=== PATIENT | male | born 1965 | race Caucasian/White ===

== ENCOUNTER 2018-08-21 10:11 | Inpatient (IN) | payer MEDICAID ==
[~2018-08-21 10:11] MED LIST: ETOMIDATE 20 MG INJ; ROCURONIUM 50 MG INJ
[2018-08-21] MEDS: CEFEPIME 2GM/50 ML (PMX) 50 ML IVPB (10:35)
[2018-08-21 10:37] LABS: ADD MAN DIFF? NO
[2018-08-21 10:39] LABS: WHITE BLOOD COUNT 9.8 10^3/ul (4.8-10.8)
[2018-08-21 10:39] LABS: ABNORMAL IP MESSAGE 1; BASOPHILS % 0.3 % (0.0-2.0); HEMATOCRIT 42.5 % (42.0-52.0); HEMOGLOBIN 13.9 g/dl (14.0-18.0); LYMPHOCYTES # 1.1 10^3/ul (0.8-2.9); LYMPHOCYTES % 10.7 % (15.0-51.0); MEAN CORPUSCULAR HEMOGLOBIN 31.6 pg (29.0-33.0); MEAN CORPUSCULAR HGB CONC 32.7 g/dl (32.0-37.0); MEAN CORPUSCULAR VOLUME 96.6 fl (82.0-101.0); MEAN PLATELET VOLUME 10.7 fl (7.4-10.4); MONOCYTE # 0.5 10^3/ul (0.3-0.9); MONOCYTES % 5.1 % (0.0-11.0); NEUTROPHIL # 8.2 10^3/ul (1.6-7.5); NEUTROPHILS % 83.2 % (39.0-77.0); PLATELET COUNT 189 10^3/UL (140-415); POSITIVE DIFF @See below; RED CELL DISTRIBUTION WIDTH 14.9 % (11.5-14.5)
[2018-08-21 10:59] LABS: AADO2 Arterial 312.2 mmHg (7.0-24.0); Allen Test ACCEPTAB; Arterial Base Excess 0.9 mmol/L (-3.0-3); Arterial Blood Gas Oxygen Sat 99.3 mmHG (95.0-98.0); Arterial COHb 0.4 % (0.0-3.0); Arterial Fraction of Oxyhgb 98.5 % (93.0-99.0); Arterial HCO3 24.5 mmol/L (22.0-26.0); Arterial MetHb 0.4 % (0.0-1.5); Arterial Total Hemglobin 14.1 g/dl (12.0-18.0); Arterial pCO2 36.2 mmhg (35-45); Blood Gas IEPAP 18/6; Blood Gas PS 12; MODE MASK - BIPAP; Site Right Radial
[2018-08-21 11:02] LABS: ANION GAP 8 (5-13); BLOOD UREA NITROGEN 28 mg/dl (7-20); CALCIUM 8.1 mg/dl (8.4-10.2); CARBON DIOXIDE 27 mmol/L (21-31); CHLORIDE 107 mmol/L (97-110); CREATININE 1.34 mg/dl (0.61-1.24); Estimated GFR 56 mL/min (>60); GLUCOSE 153 mg/dl (70-220); POTASSIUM 4.4 mmol/L (3.5-5.1); SODIUM 142 mmol/L (135-144)
[2018-08-21 11:06] LABS: ACETAMINOPHEN < 10.0 ug/ml (10.0-30.0); ETHANOL < 10.0 mg/dl; SALICYLATE < 1.0 mg/dl (5.0-30.0)
[2018-08-21] MEDS: VANCOMYCIN 1 GM (PMX) 250 ML IVPB (11:07)
[2018-08-21 11:13] LABS: TROPONIN-I < 0.012 ng/ml (0.000-0.120)
[2018-08-21] MEDS: IPRATROPIUM (NEB) 0.5 MG/2.5 ML AMP HHN (11:22)
[2018-08-21] MEDS: ALBUTEROL 0.083% (NEB) 2.5 MG/3 ML AMP HHN (11:22)
[2018-08-21 11:32] LABS: INR 1.32; PROTIME 16.6 Sec (11.9-14.9); PT RATIO 1.3
[2018-08-21 11:33] LABS: PARTIAL THROMBOPLASTIN TIME 32.9 Sec (23.0-35.0)
[2018-08-21] MEDS: SODIUM CHLORIDE 0.9% 1L BAG IV* (11:33)
[2018-08-21] MEDS ORDERED: ACETAMINOPHEN 325 MG TAB PO (12:30)
[2018-08-21] MEDS ORDERED: ONDANSETRON 4 MG INJ IV ×2 (12:30→14:00)
[2018-08-21 12:42] LABS: ADD UMIC YES; UR ASCORBIC ACID NEGATIVE (NEGATIVE); UR BILIRUBIN (Dip) NEGATIVE (NEGATIVE); UR BLOOD (Dip) NEGATIVE (NEGATIVE); UR CLARITY CLEAR (CLEAR); UR COLOR YELLOW (YELLOW); UR GLUCOSE (Dip) NEGATIVE (NEGATIVE); UR KETONES (Dip) TRACE mg/dL (NEGATIVE); UR LEUKOCYTE ESTERASE (Dip) NEGATIVE Leu/ul (NEGATIVE); UR MUCUS FEW /HPF (NONE SEEN); UR NITRITE (Dip) NEGATIVE (NEGATIVE); UR RBC 1 /HPF (0-5); UR SPECIFIC GRAVITY (Dip) 1.027 (1.003-1.030); UR TOTAL PROTEIN (Dip) 1+ mg/dl (NEGATIVE); UR UROBILINOGEN (Dip) NEGATIVE (NEGATIVE); UR WBC 3 /HPF (0-5)
[2018-08-21 13:10] LABS: ANISOCYTOSIS 1+ (0-0); BAND NEUTROPHILS #M 5.9 10^3/ul (0.0-0.6); BAND NEUTROPHILS % (M) 61 % (0-4); ERYTHROBLAST% (NRBC) (M) 2 % (0-0); LYMPHOCYTES #M 1.5 10^3/ul (0.8-2.9); LYMPHOCYTES % (M) 16 % (15-51); METAMYELOCYTES #M 0.1 10^3/ul (0.0-0.0); METAMYELOCYTES %M 2 % (0-0); MONOCYTE #M 0.1 10^3/ul (0.3-0.9); MONOCYTES % (M) 2 % (0-11); MYELOCYTES #M 0.2 10^3/ul (0.0-0.0); MYELOCYTES % (M) 3 % (0-0); PLASMA CELLS #M 0.5 10^3/ul (0.0-0.0); PLASMAC%(M) 6 % (0); PLATELET ESTIMATE NORMAL; SEG NEUT #M 1.6 10^3/ul (1.6-7.5); SEGMENTED NEUTROPHILS (M) % 10 % (39-77); SMUDGE%M 6 % (0-0)
[2018-08-21] MEDS ORDERED: VANCOMYCIN IV PER PHARMACY XX (14:00)
[2018-08-21] MEDS ORDERED: ACETAMINOPHEN 650 MG SUPP PR (14:00)
[2018-08-21] MEDS ORDERED: NACL 0.9% 3 ML SYG IV (14:00)
[2018-08-21] MEDS: ALBUTEROL/IPRATROPIUM (NEB) 3 ML AMP HHN ×2 (14:00→20:23)
[2018-08-21 14:11] LABS: B-TYPE NATRIURETIC PEPTIDE 776 PG/ML (0-125)
[2018-08-21 14:35] LABS: AMPHETAMINE/METHAMPHETAMINE Negative (NEGATIVE); BARBITURATES Negative (NEGATIVE); BENZODIAZEPINES Positive (NEGATIVE); CANNABINOIDS Negative (NEGATIVE); COCAINE Negative (NEGATIVE); OPIATES Negative (NEGATIVE)
[2018-08-21 15:58] LABS: LACTIC ACID 4.5 mmol/L (0.5-2.0)
[2018-08-21 16:11] LABS: ALANINE AMINOTRANSFERASE 19 IU/L (13-69); ALBUMIN 2.3 g/dl (3.3-4.9); ALKALINE PHOSPHATASE 37 IU/L (42-121); ASPARTATE AMINO TRANSFERASE 27 IU/L (15-46); BILIRUBIN,INDIRECT 0.2 mg/dl (0-1.1); BILIRUBIN,TOTAL 0.2 mg/dl (0.2-1.3); TOTAL PROTEIN 5.1 g/dl (6.1-8.1)
[2018-08-21] MEDS: SOD CHLORIDE 0.9% 1,000 ML IV (16:28)
[2018-08-21] MEDS: PIPER-TAZO 2.25 GM (PMX) 50 ML IVPB (18:01)
[2018-08-21] MEDS: QUETIAPINE 100 MG TAB PO (21:00)
[2018-08-21] MEDS: DIVALPROEX (ER) 500 MG TAB PO (21:00)
[2018-08-21] MEDS: LORAZEPAM 2 MG INJ IV (23:07)
[2018-08-22] MEDS: PIPER-TAZO 2.25 GM (PMX) 50 ML IVPB ×3 (01:00→11:17)
[2018-08-22] MEDS: SOD CHLORIDE 0.9% 1,000 ML IV ×2 (03:00→09:06)
[2018-08-22 07:05] LABS: WHITE BLOOD COUNT 8.1 10^3/ul (4.8-10.8)
[2018-08-22 07:05] LABS: ABNORMAL IP MESSAGE 1; HEMATOCRIT 35.9 % (42.0-52.0); HEMOGLOBIN 11.9 g/dl (14.0-18.0); MEAN CORPUSCULAR HEMOGLOBIN 32.2 pg (29.0-33.0); MEAN CORPUSCULAR HGB CONC 33.1 g/dl (32.0-37.0); PLATELET COUNT 137 10^3/UL (140-415); POSITIVE DIFF @See below
[2018-08-22 07:13] LABS: ADD MAN DIFF? YES
[2018-08-22 07:39] LABS: MAGNESIUM 1.8 mg/dl (1.7-2.5)
[2018-08-22 07:39] LABS: PHOSPHORUS 2.5 mg/dl (2.5-4.9)
[2018-08-22 07:42] LABS: ANISOCYTOSIS 1+ (0-0); BAND NEUTROPHILS #M 1.7 10^3/ul (0.0-0.6); BAND NEUTROPHILS % (M) 21 % (0-4); LYMPHOCYTES #M 0.4 10^3/ul (0.8-2.9); LYMPHOCYTES % (M) 6 % (15-51); MONOCYTE #M 0.4 10^3/ul (0.3-0.9); MONOCYTES % (M) 5 % (0-11); PLATELET ESTIMATE DECREASED; SEG NEUT #M 5.6 10^3/ul (1.6-7.5); SEGMENTED NEUTROPHILS (M) % 68 % (39-77); SMUDGE%M 1 % (0-0)
[2018-08-22 07:54] LABS: ALANINE AMINOTRANSFERASE 22 IU/L (13-69); ALBUMIN 2.4 g/dl (3.3-4.9); ALBUMIN/GLOBULIN RATIO 0.85; ALKALINE PHOSPHATASE 50 IU/L (42-121); ANION GAP 5 (5-13); ASPARTATE AMINO TRANSFERASE 29 IU/L (15-46); BILIRUBIN,INDIRECT 0.4 mg/dl (0-1.1); BILIRUBIN,TOTAL 0.4 mg/dl (0.2-1.3); BLOOD UREA NITROGEN 19 mg/dl (7-20); CALCIUM 7.2 mg/dl (8.4-10.2); CARBON DIOXIDE 28 mmol/L (21-31); CHLORIDE 110 mmol/L (97-110); CREATININE 0.86 mg/dl (0.61-1.24); Estimated GFR > 60 mL/min (>60); GLUCOSE 98 mg/dl (70-220); POTASSIUM 4.3 mmol/L (3.5-5.1); SODIUM 143 mmol/L (135-144); TOTAL PROTEIN 5.2 g/dl (6.1-8.1)
[2018-08-22] MEDS: DIVALPROEX (ER) 500 MG TAB PO (09:00)
[2018-08-22] MEDS: QUETIAPINE 100 MG TAB PO (09:00)
[2018-08-22] MEDS: ALBUTEROL/IPRATROPIUM (NEB) 3 ML AMP HHN ×2 (09:53→13:30)
[2018-08-22] MEDS: VANCOMYCIN 750 MG in SOD CHLORIDE 0.9% 150 ML IVPB ×2 (11:53→22:07)
[2018-08-22] MEDS: ENOXAPARIN 40 MG/0.4 ML SYG SC (14:38)
[2018-08-22] MEDS: D5-NS + KCL 20 MEQ 1,000 ML IV (15:52)
[2018-08-22] MEDS ORDERED: FUROSEMIDE 40 MG INJ (17:57)
[2018-08-22] MEDS: PIPER-TAZO 3.375 GM IV (PMX) 100 ML IVPB (18:09)
[2018-08-22] MEDS: FUROSEMIDE 40 MG INJ IV (18:09)
[2018-08-22] MEDS ORDERED: FENTAnyl (DRIP) 1000 mcg/100mL 100 ML IV (19:30)
[2018-08-22] MEDS: PROPOFOL 100 ML IV (19:55)
[2018-08-22] MEDS: ALBUTEROL HFA 8 GM INHALER INH (20:44)
[2018-08-22] MEDS: IPRATROPIUM (HFA) 12.9 GM INHALER INH (20:44)
[2018-08-22 20:53] LABS: AADO2 Arterial 589.1 mmHg (7.0-24.0); Allen Test ACCEPTAB; Arterial Base Excess 4.9 mmol/L (-3.0-3); Arterial Blood Gas Oxygen Sat 97.9 mmHG (95.0-98.0); Arterial COHb 0.5 % (0.0-3.0); Arterial Fraction of Oxyhgb 97.1 % (93.0-99.0); Arterial HCO3 27.6 mmol/L (22.0-26.0); Arterial MetHb 0.3 % (0.0-1.5); Arterial pCO2 34.7 mmhg (35-45); MODE VENT - AC; Site Right Radial
[2018-08-22] MEDS: VALPROIC ACID LIQUID CUP 250 MG/5 ML CUP GTB (21:00)
[2018-08-22] MEDS: QUETIAPINE 100 MG TAB GTB (21:01)
[2018-08-22] MEDS: NORepinephrine 8MG/250 ML (PMX 250 ML IV (22:08)
[2018-08-22] MEDS: LACTATED RINGER'S 1,000 ML IV (23:04)
[2018-08-22] MEDS: LORAZEPAM 2 MG INJ IV ×2 (23:09→23:10)
[2018-08-22 23:55] LABS: HEMATOCRIT 37.2 % (42.0-52.0); HEMOGLOBIN 12.4 g/dl (14.0-18.0); MEAN CORPUSCULAR HEMOGLOBIN 32.2 pg (29.0-33.0); MEAN CORPUSCULAR HGB CONC 33.3 g/dl (32.0-37.0); MEAN CORPUSCULAR VOLUME 96.6 fl (82.0-101.0); PLATELET COUNT 180 10^3/UL (140-415); POSITIVE DIFF @See below; RED BLOOD COUNT 3.85 10^6/ul (4.70-6.10); RED CELL DISTRIBUTION WIDTH 14.6 % (11.5-14.5)
[2018-08-22 23:55] LABS: WHITE BLOOD COUNT 14.6 10^3/ul (4.8-10.8)
[2018-08-23] LABS: ADD MAN DIFF? YES
[2018-08-23 00:19] LABS: ANION GAP 9 (5-13); BLOOD UREA NITROGEN 20 mg/dl (7-20); CARBON DIOXIDE 30 mmol/L (21-31); CHLORIDE 103 mmol/L (97-110); CREATININE 1.15 mg/dl (0.61-1.24); Estimated GFR > 60 mL/min (>60); GLUCOSE 105 mg/dl (70-220); MAGNESIUM 1.8 mg/dl (1.7-2.5); PHOSPHORUS 1.7 mg/dl (2.5-4.9); POTASSIUM 3.6 mmol/L (3.5-5.1); SODIUM 142 mmol/L (135-144)
[2018-08-23] MEDS: PIPER-TAZO 3.375 GM IV (PMX) 100 ML IVPB ×4 (00:20→17:17)
[2018-08-23 00:24] LABS: LACTIC ACID 6.2 mmol/L (0.5-2.0)
[2018-08-23] MEDS: VASOPRESSIN 60 UNIT in DEXTROSE 5% 57 ML IV ×2 (00:43→11:34)
[2018-08-23] MEDS: LEVETIRACETAM 1000 MG (PMX) 100 ML IVPB (01:02)
[2018-08-23 01:05] LABS: ANISOCYTOSIS 1+ (0-0); BAND NEUTROPHILS % (M) 28 % (0-4); GIANT THROMBO% (M) 1 % (0-0); LYMPHOCYTES #M 1.6 10^3/ul (0.8-2.9); LYMPHOCYTES % (M) 11 % (15-51); MONOCYTE #M 0.4 10^3/ul (0.3-0.9); MONOCYTES % (M) 3 % (0-11); PLATELET ESTIMATE NORMAL; POLYCHROMASIA 3+ (0-0); SEG NEUT #M 9.1 10^3/ul (1.6-7.5); SEGMENTED NEUTROPHILS (M) % 58 % (39-77); SMUDGE%M 6 % (0-0)
[2018-08-23] MEDS: VALPROATE INJ 500 MG in SOD CHLORIDE 0.9% 50 ML IVPB ×2 (01:26→11:33)
[2018-08-23] MEDS: SODIUM PHOSPHATE 30 MMOL in SOD CHLORIDE 0.9% 250 ML IVPB (02:45)
[2018-08-23 05:00] LABS: ADD MAN DIFF? NO
[2018-08-23 05:03] LABS: BASOPHIL # 0.1 10^3/ul (0.0-0.1); BASOPHILS % 0.4 % (0.0-2.0); EOSINOPHILS % 0.1 % (0.0-7.0); HEMATOCRIT 36.5 % (42.0-52.0); HEMOGLOBIN 12.2 g/dl (14.0-18.0); LYMPHOCYTES # 1.5 10^3/ul (0.8-2.9); LYMPHOCYTES % 9.9 % (15.0-51.0); MEAN CORPUSCULAR HEMOGLOBIN 31.6 pg (29.0-33.0); MEAN CORPUSCULAR HGB CONC 33.4 g/dl (32.0-37.0); MEAN CORPUSCULAR VOLUME 94.6 fl (82.0-101.0); MEAN PLATELET VOLUME 11.1 fl (7.4-10.4); MONOCYTE # 0.7 10^3/ul (0.3-0.9); MONOCYTES % 4.7 % (0.0-11.0); NEUTROPHIL # 12.9 10^3/ul (1.6-7.5); NEUTROPHILS % 83.8 % (39.0-77.0); PLATELET COUNT 183 10^3/UL (140-415); POSITIVE DIFF @See below; RED BLOOD COUNT 3.86 10^6/ul (4.70-6.10); RED CELL DISTRIBUTION WIDTH 14.6 % (11.5-14.5)
[2018-08-23 05:03] LABS: WHITE BLOOD COUNT 15.4 10^3/ul (4.8-10.8)
[2018-08-23 05:28] LABS: ANION GAP 9 (5-13); BLOOD UREA NITROGEN 20 mg/dl (7-20); CALCIUM 7.6 mg/dl (8.4-10.2); CARBON DIOXIDE 30 mmol/L (21-31); CHLORIDE 104 mmol/L (97-110); CREATININE 1.15 mg/dl (0.61-1.24); Estimated GFR > 60 mL/min (>60); GLUCOSE 151 mg/dl (70-220); POTASSIUM 3.5 mmol/L (3.5-5.1); SODIUM 143 mmol/L (135-144)
[2018-08-23 05:32] LABS: LACTIC ACID 2.9 mmol/L (0.5-2.0)
[2018-08-23 07:16] LABS: ANISOCYTOSIS 1+ (0-0); BAND NEUTROPHILS % (M) 20 % (0-4); ERYTHROBLAST% (NRBC) (M) 1 % (0-0); GIANT THROMBO% (M) 1 % (0-0); LYMPHOCYTES #M 1.3 10^3/ul (0.8-2.9); LYMPHOCYTES % (M) 9 % (15-51); MONOCYTE #M 0.3 10^3/ul (0.3-0.9); MONOCYTES % (M) 2 % (0-11); MYELOCYTES #M 0.3 10^3/ul (0.0-0.0); MYELOCYTES % (M) 2 % (0-0); PLATELET ESTIMATE NORMAL; POLYCHROMASIA 1+ (0-0); REACTIVE LYMPHOCYTES #M 0.1 10^3/ul (0.0-0.0); REACTIVE LYMPHOCYTES% (M) 1 % (0-0); SEG NEUT #M 10.6 10^3/ul (1.6-7.5); SEGMENTED NEUTROPHILS (M) % 66 % (39-77); SMUDGE%M 2 % (0-0)
[2018-08-23] MEDS: PROPOFOL 100 ML IV ×2 (07:30→19:30)
[2018-08-23 08:06] LABS: AADO2 Arterial 527.2 mmHg (7.0-24.0); Arterial Base Excess 2.4 mmol/L (-3.0-3); Arterial COHb 1.3 % (0.0-3.0); Arterial Fraction of Oxyhgb 92.8 % (93.0-99.0); Arterial MetHb 0 % (0.0-1.5); Arterial Total Hemglobin 11.9 g/dl (12.0-18.0); Arterial pCO2 41.9 mmhg (35-45); MODE VENT - AC; Site LB
[2018-08-23] MEDS: ENOXAPARIN 40 MG/0.4 ML SYG SC (08:46)
[2018-08-23] MEDS: QUETIAPINE 100 MG TAB GTB (09:00)
[2018-08-23] MEDS: VALPROIC ACID LIQUID CUP 250 MG/5 ML CUP GTB (09:00)
[2018-08-23] MEDS: MAGNESIUM SULFATE 1 GM/D5W 100 ML IVPB (09:28)
[2018-08-23] MEDS ORDERED: POTASSIUM CHLORIDE 50 ML IVPB (09:30)
[2018-08-23] MEDS: IPRATROPIUM (HFA) 12.9 GM INHALER INH ×3 (10:27→19:49)
[2018-08-23] MEDS: ALBUTEROL HFA 8 GM INHALER INH ×3 (10:27→19:49)
[2018-08-23] MEDS: POTASSIUM CHLORIDE 100 ML IVPB (10:35)
[2018-08-23 10:36] LABS: PHOSPHORUS 2.8 mg/dl (2.5-4.9)
[2018-08-23 10:36] LABS: MAGNESIUM 1.6 mg/dl (1.7-2.5)
[2018-08-23] MEDS: AZITHROMYCIN 500MG/NS (PMX) 250 ML IVPB (11:37)
[2018-08-23] MEDS: VANCOMYCIN 750 MG in SOD CHLORIDE 0.9% 150 ML IVPB (12:40)
[2018-08-23] MEDS: NORepinephrine 8MG/250 ML (PMX 250 ML IV (17:21)
[2018-08-23] MEDS: D5-NS + KCL 20 MEQ 1,000 ML IV (17:22)
[2018-08-23] MEDS: VANCOMYCIN 1 GM 250 ML IVPB (23:20)
[2018-08-24] MEDS: PIPER-TAZO 3.375 GM IV (PMX) 100 ML IVPB ×4 (00:20→18:31)
[2018-08-24] MEDS: VALPROATE INJ 500 MG in SOD CHLORIDE 0.9% 50 ML IVPB ×3 (00:20→23:09)
[2018-08-24] MEDS: VASOPRESSIN 60 UNIT in DEXTROSE 5% 57 ML IV ×3 (00:24→23:08)
[2018-08-24] MEDS: D5-NS + KCL 20 MEQ 1,000 ML IV ×2 (05:07→22:01)
[2018-08-24 05:53] LABS: HEMATOCRIT 29.3 % (42.0-52.0); HEMOGLOBIN 9.9 g/dl (14.0-18.0); MEAN CORPUSCULAR HEMOGLOBIN 31.9 pg (29.0-33.0); MEAN CORPUSCULAR HGB CONC 33.8 g/dl (32.0-37.0); MEAN CORPUSCULAR VOLUME 94.5 fl (82.0-101.0); MEAN PLATELET VOLUME 11.5 fl (7.4-10.4); PLATELET COUNT 106 10^3/UL (140-415); POSITIVE DIFF @See below; RED CELL DISTRIBUTION WIDTH 14.6 % (11.5-14.5)
[2018-08-24 05:53] LABS: WHITE BLOOD COUNT 10.4 10^3/ul (4.8-10.8)
[2018-08-24 05:54] LABS: PHOSPHORUS 1.6 mg/dl (2.5-4.9)
[2018-08-24 05:54] LABS: ADD MAN DIFF? YES; MAGNESIUM 2.2 mg/dl (1.7-2.5)
[2018-08-24 05:58] LABS: ANION GAP 4 (5-13); BLOOD UREA NITROGEN 18 mg/dl (7-20); CALCIUM 7.3 mg/dl (8.4-10.2); CARBON DIOXIDE 31 mmol/L (21-31); CHLORIDE 108 mmol/L (97-110); CREATININE 0.94 mg/dl (0.61-1.24); Estimated GFR > 60 mL/min (>60); GLUCOSE 151 mg/dl (70-220); SODIUM 143 mmol/L (135-144)
[2018-08-24 07:22] LABS: ERYTHROCYTE SEDIMENTATION RATE 56 mm/Hr (0-20)
[2018-08-24] MEDS: PROPOFOL 100 ML IV ×2 (07:30→17:53)
[2018-08-24 07:37] LABS: AADO2 Arterial 374.3 mmHg (7.0-24.0); Arterial Base Excess 4.2 mmol/L (-3.0-3); Arterial Blood Gas Oxygen Sat 95.4 mmHG (95.0-98.0); Arterial COHb 0.1 % (0.0-3.0); Arterial Fraction of Oxyhgb 95.1 % (93.0-99.0); Arterial HCO3 29.2 mmol/L (22.0-26.0); Arterial MetHb 0.2 % (0.0-1.5); Arterial Total Hemglobin 11.4 g/dl (12.0-18.0); Arterial pCO2 45.8 mmhg (35-45); MODE VENT - AC; Site LB
[2018-08-24] MEDS: ALBUTEROL HFA 8 GM INHALER INH ×3 (08:02→20:23)
[2018-08-24] MEDS: IPRATROPIUM (HFA) 12.9 GM INHALER INH ×3 (08:02→20:23)
[2018-08-24] MEDS ORDERED: POTASSIUM CHLORIDE 50 ML IVPB (08:30)
[2018-08-24] MEDS ORDERED: MAGNESIUM SULFATE 2 GM/50 ML 50 ML IVPB (08:30)
[2018-08-24] MEDS: POTASSIUM CHLORIDE 50 ML IVPB ×2 (09:10→11:30)
[2018-08-24] MEDS: ENOXAPARIN 40 MG/0.4 ML SYG SC (09:11)
[2018-08-24 10:21] LABS: BAND NEUTROPHILS #M 3.1 10^3/ul (0.0-0.6); BAND NEUTROPHILS % (M) 30 % (0-4); BASOPHIL #M 0.1 10^3/ul (0.0-0.0); BASOPHILS % (M) 1 % (0-2); HYPOCHROMASIA 2+ (0-0); LYMPHOCYTES #M 0.8 10^3/ul (0.8-2.9); LYMPHOCYTES % (M) 8 % (15-51); MONOCYTE #M 0.1 10^3/ul (0.3-0.9); MONOCYTES % (M) 1 % (0-11); PLATELET ESTIMATE DECREASED; SEG NEUT #M 6.6 10^3/ul (1.6-7.5); SEGMENTED NEUTROPHILS (M) % 60 % (39-77); TARGET CELLS 2+ (0-0)
[2018-08-24] MEDS: POTASSIUM PHOSPHATE 15 MM in SOD CHLORIDE 0.9% 250 ML IVPB (10:43)
[2018-08-24] MEDS: LACTATED RINGER'S 1,000 ML IV (10:49)
[2018-08-24] MEDS: AZITHROMYCIN 500MG/NS (PMX) 250 ML IVPB (12:55)
[2018-08-24] MEDS: VANCOMYCIN 1 GM 250 ML IVPB ×2 (15:24→23:08)
[2018-08-24] MEDS ORDERED: ACETAMINOPHEN 650MG/20.3ML CUP GTB (21:00)
[2018-08-25] MEDS: PIPER-TAZO 3.375 GM IV (PMX) 100 ML IVPB ×4 (00:32→18:10)
[2018-08-25 05:26] LABS: ADD MAN DIFF? NO
[2018-08-25] MEDS: PANTOPRAZOLE 40 MG INJ IV (05:26)
[2018-08-25 05:31] LABS: ABNORMAL IP MESSAGE 1; BASOPHILS % 0.2 % (0.0-2.0); HEMATOCRIT 30.3 % (42.0-52.0); HEMOGLOBIN 10.1 g/dl (14.0-18.0); LYMPHOCYTES # 0.7 10^3/ul (0.8-2.9); MEAN CORPUSCULAR HEMOGLOBIN 31.5 pg (29.0-33.0); MEAN CORPUSCULAR HGB CONC 33.3 g/dl (32.0-37.0); MEAN CORPUSCULAR VOLUME 94.4 fl (82.0-101.0); MEAN PLATELET VOLUME 11.6 fl (7.4-10.4); MONOCYTE # 0.7 10^3/ul (0.3-0.9); MONOCYTES % 7.1 % (0.0-11.0); NEUTROPHIL # 7.8 10^3/ul (1.6-7.5); NEUTROPHILS % 82.8 % (39.0-77.0); PLATELET COUNT 92 10^3/UL (140-415); POSITIVE DIFF @See below; RED BLOOD COUNT 3.21 10^6/ul (4.70-6.10); RED CELL DISTRIBUTION WIDTH 14.8 % (11.5-14.5)
[2018-08-25 05:31] LABS: WHITE BLOOD COUNT 9.4 10^3/ul (4.8-10.8)
[2018-08-25 05:59] LABS: MAGNESIUM 2.2 mg/dl (1.7-2.5)
[2018-08-25 05:59] LABS: PHOSPHORUS 1.4 mg/dl (2.5-4.9)
[2018-08-25 06:05] LABS: INR 1.43; PROTIME 17.7 Sec (11.9-14.9); PT RATIO 1.4
[2018-08-25 06:06] LABS: PARTIAL THROMBOPLASTIN TIME 44.3 Sec (23.0-35.0)
[2018-08-25 06:31] LABS: ALANINE AMINOTRANSFERASE 19 IU/L (13-69); ALKALINE PHOSPHATASE 66 IU/L (42-121); ANION GAP 2 (5-13); ASPARTATE AMINO TRANSFERASE 34 IU/L (15-46); BILIRUBIN,INDIRECT 0.3 mg/dl (0-1.1); BILIRUBIN,TOTAL 0.3 mg/dl (0.2-1.3); BLOOD UREA NITROGEN 15 mg/dl (7-20); CALCIUM 7.4 mg/dl (8.4-10.2); CARBON DIOXIDE 31 mmol/L (21-31); CHLORIDE 114 mmol/L (97-110); CREATININE 0.88 mg/dl (0.61-1.24); Estimated GFR > 60 mL/min (>60); GLUCOSE 115 mg/dl (70-220); SODIUM 147 mmol/L (135-144); TOTAL PROTEIN 4.5 g/dl (6.1-8.1)
[2018-08-25] MEDS: PROPOFOL 100 ML IV ×2 (07:30→19:30)
[2018-08-25] MEDS: ALBUTEROL HFA 8 GM INHALER INH ×3 (08:10→20:53)
[2018-08-25] MEDS: IPRATROPIUM (HFA) 12.9 GM INHALER INH ×3 (08:10→20:53)
[2018-08-25] MEDS: ENOXAPARIN 40 MG/0.4 ML SYG SC (08:52)
[2018-08-25] MEDS: AZITHROMYCIN 500MG/NS (PMX) 250 ML IVPB (08:54)
[2018-08-25] MEDS: POTASSIUM CHLORIDE 50 ML IVPB ×3 (09:24→14:25)
[2018-08-25 10:18] LABS: B-TYPE NATRIURETIC PEPTIDE 1350 PG/ML (0-125)
[2018-08-25] MEDS: POTASSIUM PHOSPHATE 15 MM in SOD CHLORIDE 0.9% 250 ML IVPB (10:49)
[2018-08-25] MEDS: VASOPRESSIN 60 UNIT in DEXTROSE 5% 57 ML IV ×2 (11:34→23:34)
[2018-08-25] MEDS: VALPROATE INJ 500 MG in SOD CHLORIDE 0.9% 50 ML IVPB ×2 (11:38→23:30)
[2018-08-25] MEDS: METHYLPREDNISOLONE 40 MG INJ IV ×2 (14:24→22:12)
[2018-08-25] MEDS: D5-NS + KCL 20 MEQ 1,000 ML IV (22:11)
[2018-08-26] MEDS: METHYLPREDNISOLONE 40 MG INJ IV ×3 (05:30→21:43)
[2018-08-26] MEDS: PANTOPRAZOLE 40 MG INJ IV (05:30)
[2018-08-26] MEDS: PIPER-TAZO 3.375 GM IV (PMX) 100 ML IVPB ×4 (05:30→17:40)
[2018-08-26 06:28] LABS: ADD MAN DIFF? NO
[2018-08-26 06:31] LABS: ABNORMAL IP MESSAGE 1; BASOPHILS % 0.3 % (0.0-2.0); HEMATOCRIT 30.1 % (42.0-52.0); HEMOGLOBIN 10.1 g/dl (14.0-18.0); LYMPHOCYTES # 0.5 10^3/ul (0.8-2.9); MEAN CORPUSCULAR HEMOGLOBIN 31.5 pg (29.0-33.0); MEAN CORPUSCULAR HGB CONC 33.6 g/dl (32.0-37.0); MEAN CORPUSCULAR VOLUME 93.8 fl (82.0-101.0); MEAN PLATELET VOLUME 12.7 fl (7.4-10.4); MONOCYTE # 0.3 10^3/ul (0.3-0.9); MONOCYTES % 3.3 % (0.0-11.0); NEUTROPHIL # 6.5 10^3/ul (1.6-7.5); NEUTROPHILS % 85.6 % (39.0-77.0); NUCLEATED RED BLOOD CELLS% 0.3 /100WBC (0.0-0.0); PLATELET COUNT 81 10^3/UL (140-415); POSITIVE DIFF @See below; RED BLOOD COUNT 3.21 10^6/ul (4.70-6.10); RED CELL DISTRIBUTION WIDTH 15.3 % (11.5-14.5)
[2018-08-26 06:31] LABS: WHITE BLOOD COUNT 7.6 10^3/ul (4.8-10.8)
[2018-08-26 06:59] LABS: ANION GAP 7 (5-13); BLOOD UREA NITROGEN 20 mg/dl (7-20); CALCIUM 7.9 mg/dl (8.4-10.2); CARBON DIOXIDE 31 mmol/L (21-31); CHLORIDE 111 mmol/L (97-110); CREATININE 1.01 mg/dl (0.61-1.24); Estimated GFR > 60 mL/min (>60); GLUCOSE 150 mg/dl (70-220); POTASSIUM 3.9 mmol/L (3.5-5.1); SODIUM 149 mmol/L (135-144)
[2018-08-26 07:01] LABS: PHOSPHORUS 1.3 mg/dl (2.5-4.9)
[2018-08-26 07:01] LABS: MAGNESIUM 2.3 mg/dl (1.7-2.5)
[2018-08-26] MEDS: PROPOFOL 100 ML IV ×2 (07:30→09:27)
[2018-08-26] MEDS: IPRATROPIUM (HFA) 12.9 GM INHALER INH ×3 (07:43→19:20)
[2018-08-26] MEDS: ALBUTEROL HFA 8 GM INHALER INH ×3 (07:43→19:20)
[2018-08-26 08:53] LABS: AADO2 Arterial 406.9 mmHg (7.0-24.0); Allen Test ACCEPTAB; Arterial Blood Gas Oxygen Sat 84.3 mmHG (95.0-98.0); Arterial COHb 0 % (0.0-3.0); Arterial HCO3 28.6 mmol/L (22.0-26.0); Arterial MetHb 0.3 % (0.0-1.5); Arterial Total Hemglobin 10.6 g/dl (12.0-18.0); Arterial pCO2 43.1 mmhg (35-45); MODE VENT - AC; Site Right Radial
[2018-08-26] MEDS: ENOXAPARIN 40 MG/0.4 ML SYG SC (09:35)
[2018-08-26] MEDS: POTASSIUM PHOSPHATE 15 MM in SOD CHLORIDE 0.9% 250 ML IVPB (10:35)
[2018-08-26] MEDS: FUROSEMIDE 40 MG INJ IV (10:37)
[2018-08-26] MEDS: VASOPRESSIN 60 UNIT in DEXTROSE 5% 57 ML IV ×2 (11:34→23:34)
[2018-08-26] MEDS: NORepinephrine 8MG/250 ML (PMX 250 ML IV (12:48)
[2018-08-26] MEDS: VALPROATE INJ 500 MG in SOD CHLORIDE 0.9% 50 ML IVPB ×2 (12:50→23:12)
[2018-08-26] MEDS: AZITHROMYCIN 500MG/NS (PMX) 250 ML IVPB (15:50)
[2018-08-26] MEDS: D5-NS + KCL 20 MEQ 1,000 ML IV (17:15)
[2018-08-27] MEDS: PIPER-TAZO 3.375 GM IV (PMX) 100 ML IVPB ×3 (00:34→12:00)
[2018-08-27] MEDS: D5-NS + KCL 20 MEQ 1,000 ML IV (00:37)
[2018-08-27] MEDS: PROPOFOL 100 ML IV ×2 (01:32→11:31)
[2018-08-27 04:52] LABS: ADD MAN DIFF? NO
[2018-08-27 04:55] LABS: WHITE BLOOD COUNT 11.9 10^3/ul (4.8-10.8)
[2018-08-27 04:55] LABS: BASOPHILS % 0.1 % (0.0-2.0); HEMATOCRIT 28.5 % (42.0-52.0); HEMOGLOBIN 9.7 g/dl (14.0-18.0); LYMPHOCYTES # 0.8 10^3/ul (0.8-2.9); LYMPHOCYTES % 6.5 % (15.0-51.0); MEAN CORPUSCULAR HEMOGLOBIN 31.8 pg (29.0-33.0); MEAN CORPUSCULAR VOLUME 93.4 fl (82.0-101.0); MEAN PLATELET VOLUME 12.7 fl (7.4-10.4); MONOCYTE # 0.8 10^3/ul (0.3-0.9); NEUTROPHILS % 83.8 % (39.0-77.0); NUCLEATED RED BLOOD CELLS # 0.1 10^3/ul (0.0-0.0); NUCLEATED RED BLOOD CELLS% 0.8 /100WBC (0.0-0.0); PLATELET COUNT 106 10^3/UL (140-415); RED BLOOD COUNT 3.05 10^6/ul (4.70-6.10); RED CELL DISTRIBUTION WIDTH 15.6 % (11.5-14.5)
[2018-08-27 05:17] LABS: PHOSPHORUS 2.6 mg/dl (2.5-4.9)
[2018-08-27 05:17] LABS: MAGNESIUM 2.4 mg/dl (1.7-2.5)
[2018-08-27 05:27] LABS: ANION GAP 4 (5-13); BLOOD UREA NITROGEN 31 mg/dl (7-20); CALCIUM 7.9 mg/dl (8.4-10.2); CARBON DIOXIDE 35 mmol/L (21-31); CHLORIDE 110 mmol/L (97-110); CREATININE 0.99 mg/dl (0.61-1.24); Estimated GFR > 60 mL/min (>60); GLUCOSE 216 mg/dl (70-220); POTASSIUM 3.6 mmol/L (3.5-5.1); SODIUM 149 mmol/L (135-144)
[2018-08-27] MEDS: PANTOPRAZOLE 40 MG INJ IV (05:38)
[2018-08-27] MEDS: METHYLPREDNISOLONE 40 MG INJ IV (05:38)
[2018-08-27] MEDS: IPRATROPIUM (HFA) 12.9 GM INHALER INH (07:53)
[2018-08-27] MEDS: ALBUTEROL HFA 8 GM INHALER INH (07:54)
[2018-08-27 08:56] LABS: AADO2 Arterial 613.3 mmHg (7.0-24.0); Allen Test ACCEPTAB; Arterial Base Excess 4.4 mmol/L (-3.0-3); Arterial Blood Gas Oxygen Sat 86.2 mmHG (95.0-98.0); Arterial COHb 0.1 % (0.0-3.0); Arterial Fraction of Oxyhgb 85.8 % (93.0-99.0); Arterial HCO3 29.8 mmol/L (22.0-26.0); Arterial MetHb 0.4 % (0.0-1.5); Arterial Total Hemglobin 10.5 g/dl (12.0-18.0); Arterial pCO2 48.6 mmhg (35-45); MODE VENT - AC; Site Right Radial
[2018-08-27] MEDS: ENOXAPARIN 40 MG/0.4 ML SYG SC (09:00)
[2018-08-27] MEDS ORDERED: MIDAZOLAM (DRIP) 50 mg/50 mL 50 ML IV (09:30)
[2018-08-27] MEDS: FUROSEMIDE 40 MG INJ IV (10:01)
[2018-08-27] MEDS: AZITHROMYCIN 500MG/NS (PMX) 250 ML IVPB (10:24)
[2018-08-27] MEDS: VALPROATE INJ 500 MG in SOD CHLORIDE 0.9% 50 ML IVPB (11:30)
[2018-08-27] MEDS: VASOPRESSIN 60 UNIT in DEXTROSE 5% 57 ML IV (11:34)
[2018-08-27] MEDS: morphine (DRIP) 100 MG/100 ML 100 ML IV (13:24)
[2018-08-27] MEDS ORDERED: LORAZEPAM 2 MG INJ (14:03)
[2018-08-27] MEDS: LORAZEPAM 2 MG INJ IV (14:08)
[2018-08-27 14:26] LABS: PROCALCITONIN 3.58 ng/mL (<0.10)
== END 2018-08-27 15:12 | disposition expired | DRG 871 ==
LOC: ICU 08-22 17:47 → E/R 10:11 → TEL 12:15
PROC: 5A1945Z Respiratory Ventilation, 24-96 Consecutive Hours (ICD-10-PCS; 2018-08-22)
PROC: 0BH18EZ Insertion of Endotracheal Airway into Trachea, Via Natural or Artificial Opening Endoscopic (ICD-10-PCS; 2018-08-22)
PROC: 02HV33Z Insertion of Infusion Device into Superior Vena Cava, Percutaneous Approach (ICD-10-PCS; principal; 2018-08-23)
DX: A41.9 Sepsis, unspecified organism (principal); J69.0 Pneumonitis due to inhalation of food and vomit; J96.01 Acute respiratory failure with hypoxia; N17.0 Acute kidney failure with tubular necrosis; R65.21 Severe sepsis with septic shock; G92 Toxic encephalopathy; I50.43 Acute on chronic combined systolic (congestive) and diastolic (congestive) heart failure; E87.2 Acidosis; E87.0 Hyperosmolality and hypernatremia; G40.909 Epilepsy, unspecified, not intractable, without status epilepticus; F42.9 Obsessive-compulsive disorder, unspecified; D64.9 Anemia, unspecified; D69.6 Thrombocytopenia, unspecified; F79 Unspecified intellectual disabilities
CPT/HCPCS: 31500; 36415; 36600; 70450; 71045; 80048; 80053; 80076; 80202; 80307; 81001; 82803; 82962; 83036; 83605; 83735; 83880; 84100; 84145; 84484; 85025; 85610; 85651; 85730; 87040; 87070; 87081; 87086; 87275; 87276; 87279; 87280; 87400; 93005; 93306; 94002; 94003; 94640; 94660; 94664; 94770; 95819; 96374; 96375; 99291-25